=== PATIENT | female | born 1980 | race Caucasian/White ===

== ENCOUNTER 2016-09-03 11:02 | Emergency (ER) | payer MEDICAID ==
[~2016-09-03] VITALS: Ht 165.1 cm; Wt 93.9 kg
[2016-09-03 11:30] VITALS: BP 138/103
[2016-09-03] MEDS ORDERED: KETOROLAC TROMETH 60MG/2ML VIAL IM ONE (11:45)
[2016-09-03] MEDS ORDERED: cefTRIAXone SOD 1,000 MG VL IM ONE (11:45)
== END 2016-09-03 13:32 | disposition home or self-care (01) ==
LOC: ER 11:02
DX: K08.89 Other specified disorders of teeth and supporting structures (principal); Z98.51 Tubal ligation status
CPT/HCPCS: 96372; 99284; J0696; J1885